=== PATIENT | female | born 1975 | race Asian ===

== ENCOUNTER 2018-05-09 00:39 | Emergency (ER) | payer OTHER ==
[2018-05-09 01:40] LABS: ABS Basophils 0.1 10^3/ul (0-0.2); ABS Eosinophils 0.2 10^3/ul (0-0.6); ABS Lymphocytes 1.8 10^3/ul (1.0-4.8); ABS Monocytes 0.8 10^3/ul (0-0.8); ABS Neutrophils 7.3 10^3/ul (1.5-7.7); ABS Nucleated RBC 0 10^3/ul; Eosinophil % 1.5 % (0-6); Hematocrit 37 % (35-47); Hemoglobin 12.5 g/dl (12.0-16.0); Lymphocyte % 17.6 % (25-47); Mean Corpuscular HGB Conc 34 g/dl (31-36); Mean Corpuscular Hemoglobin 31 pg (27-31); Mean Corpuscular Volume 91 fL (80-97); Mean Platelet Volume 8.3 um3 (7.4-10.4); Nucleated Red Blood Cells % 0; Platelet Count 318 10^3/ul (150-450); Red Blood Count 4.04 10^6/ul (4.00-5.40); Red Cell Distribution Width 13 % (10.5-15); White Blood Count 10.1 10^3/ul (3.5-10.8)
--- NOTE | 2018-05-09 02:15 | ED ---
Respiratory - HPI Summary HPI Summary: Complains of productive cough, nasal discharge 2 weeks, with right side tickling of her chest, shortness of breath starting this afternoon. Right side tickling of her chest has been constant. Cough is very persistent. Denies fever, neck stiffness, sore throat, ear pain, SHELDON, N/V/D, abdomen pain, change in urinary BM. Medical history is none. Nonsmoker, negative EtOH, negative illegal drugs. Denies history of blood clots, cancer, unilateral bilateral leg pain, hemoptysis cysts, recent trauma or surgery, estrogen or hormone supplements. Denies history of cardiac disease or pulmonary disease. States she has been taking old prescription for azithromycin 500 mg daily 4 days with no improvement in symptoms. - History of Current Complaint Chief Complaint: EDUpperRespComplaint Stated Complaint: COUGH Time Seen by Provider: 05/09/18 00:52 Hx Obtained From: Patient, Family/[employer] Supervisor Onset/Duration: Gradual Onset Initial Severity: Mild Current Severity: Mild Pain Intensity: 0 Character: Cough (Productive), Dyspnea on Exertion Sputum Amount: Moderate Sputum Color: Green Aggravating Factor(s): Exertion, Deep Breaths - Risk Factors Status Asthmaticus Risk Factors: Negative Pulmonary Embolism Risk Factors: Negative Cardiac Risk Factors: Negative Tuberculosis Risk Factors: Negative - Allergy/Home Medications Allergies/Adverse Reactions: Allergies Allergy/AdvReac Type Severity Reaction Status Date / Time Penicillins Allergy Rash Verified 05/09/18 00:46 PMH/Surg Hx/FS Hx/Imm Hx Previously Healthy: Yes Endocrine/Hematology History: Denies: Hx Anticoagulant Therapy Cardiovascular History: Denies: Hx Atrial Fibrillation Respiratory History: Denies: Hx Asthma GI History: Denies: Hx Cirrhosis History: Reports: Hx Kidney Infection - kidney stones; miriam renal cysts Musculoskeletal History: Denies: Hx Gout Sensory History: Denies: Hx Cataracts EENT History: Denies: Hx Deafness Neurological History: Denies: Hx CVA Infectious Disease History: No Infectious Disease History: Denies: Traveled Outside the [place] in Last 30 Days - Social History Alcohol Use: None Substance Use Type: Reports: None Smoking Status (MU): Never Smoked Tobacco Review of Systems Constitutional: Negative Eyes: Negative ENT: Negative Positive: Chest Pain Positive: Shortness Of Breath, Cough Gastrointestinal: Negative Genitourinary: Negative Musculoskeletal: Negative Neurological: Negative Psychological: Normal All Other Systems Reviewed And Are Negative: Yes Physical Exam Triage Information Reviewed: Yes Vital Signs On Initial Exam: Initial Vitals Temp Pulse Resp BP Pulse Ox 98.3 F 114 23 130/88 98 05/09/18 00:42 05/09/18 00:42 05/09/18 00:42 05/09/18 00:42 05/09/18 00:42 Vital Signs Reviewed: Yes Appearance: Positive: Well-Appearing Skin: Positive: Warm Head/Face: Positive: Normal Head/Face Inspection Eyes: Positive: Normal ENT: Positive: Normal ENT inspection Neck: Positive: Supple Respiratory/Lung Sounds: Positive: Clear to Auscultation Cardiovascular: Positive: Normal Abdomen Description: Positive: Nontender Musculoskeletal: Positive: Normal Neurological: Positive: Normal Psychiatric: Positive: Normal AVPU Assessment: Alert - William Coma Scale Best Eye Response: 4 - Spontaneous Best Motor Response: 6 - Obeys Commands Best Verbal Response: 5 - Oriented Coma Scale Total: 15 Diagnostics - Vital Signs Vital Signs Temp Pulse Resp BP Pulse Ox 05/09/18 01:02 122 143/105 96 05/09/18 00:42 98.3 F 114 23 130/88 98 - Laboratory Lab Results: Lab Results 05/09/18 05/09/18 05/09/18 Range/Units 01:23 01:23 01:23 WBC 10.1 (3.5-10.8) 10^3/ul RBC 4.04 (4.00-5.40) 10^6/ul Hgb 12.5 (12.0-16.0) g/dl Hct 37 (35-47) % MCV 91 (80-97) fL MCH 31 (27-31) pg MCHC 34 (31-36) g/dl RDW 13 (10.5-15) % Plt Count 318 (150-450) 10^3/ul MPV 8.3 (7.4-10.4) um3 Neut % (Auto) 71.8 (38-83) % Lymph % (Auto) 17.6 L (25-47) % [place] % (Auto) 8.2 H (0-7) % Eos % (Auto) 1.5 (0-6) % Baso % (Auto) 0.9 (0-2) % Absolute Neuts (auto) 7.3 (1.5-7.7) 10^3/ul Absolute Lymphs (auto) 1.8 (1.0-4.8) 10^3/ul Absolute Monos (auto) 0.8 (0-0.8) 10^3/ul Absolute Eos (auto) 0.2 (0-0.6) 10^3/ul Absolute Basos (auto) 0.1 (0-0.2) 10^3/ul Absolute Nucleated RBC 0 10^3/ul Nucleated RBC % 0 Sodium 138 (135-145) mmol/L Potassium 4.1 (3.5-5.0) mmol/L Chloride 106 (101-111) mmol/L Carbon Dioxide 26 (22-32) mmol/L Anion Gap 6 (2-11) mmol/L BUN 17 (6-24) mg/dL Creatinine 0.67 (0.51-0.95) mg/dL Est GFR ( Amer) 124.7 (>60) Est GFR (Non-Af Amer) 97.0 (>60) BUN/Creatinine Ratio 25.4 H (8-20) Glucose 99 (70-100) mg/dL Lactic Acid 1.2 (0.5-2.0) mmol/L Calcium 9.3 (8.6-10.3) mg/dL Total Bilirubin 0.40 (0.2-1.0) mg/dL AST 18 (13-39) U/L ALT 10 (7-52) U/L Alkaline Phosphatase 58 (34-104) U/L Troponin I 0.00 (<0.04) ng/mL C-Reactive Protein 2.07 (< 5.00) mg/L Total Protein 7.1 (6.4-8.9) g/dL Albumin 4.0 (3.2-5.2) g/dL Globulin 3.1 (2-4) g/dL Albumin/Globulin Ratio 1.3 (1-3) Result Diagrams: 05/09/18 01:23 05/09/18 01:23 Lab Statement: Any lab studies that have been ordered have been reviewed, and results considered in the medical decision making process. - Radiology cxr Xray Interpretation: No Acute Changes Radiology Interpretation Completed By: ED Physician - EKG 1 Cardiac Rate: NL EKG Rhythm: Sinus Rhythm ST Segment: Non-Specific Ectopy: None Disposition - Course Course Of Treatment: Complains of productive cough, nasal discharge 2 weeks, with right side tickling of her chest, shortness of breath starting this afternoon. Right side tickling of her chest has been constant. Cough is very persistent. Denies fever, sore throat, ear pain, SHELDON, N/V/D, abdomen pain, change in urinary BM. Medical history is none. Nonsmoker, negative EtOH, negative illegal drugs. Denies history of blood clots, cancer, unilateral bilateral leg pain, hemoptysis cysts, recent trauma or surgery, estrogen or hormone supplements. Denies history of cardiac disease or pulmonary disease. States she has been taking old prescription for azithromycin 500 mg daily 4 days with no improvement in symptoms. PE: nml. W/up: Labs and imaging unremarkable. Patient has been on an old prescription for azithromycin 4 days with no improvement. Likely viral syndrome. Rx for Robitussin with codeine. Robitussin with codeine once here in the ED. driving patient home. - Diagnoses Provider Diagnoses: Cough, Viral syndrome Discharge - Sign-Out/Discharge Documenting (check all that apply): Discharge/Admit/Transfer - Discharge Plan Condition: Stable Disposition: HOME Prescriptions: guaiFENesin/CODIEN 100MG-10MG* [Robitussin AC 100Mg-10Mg*] 5 ml PO Q4H PRN 5 Days #150 udc MDD 30ml PRN Reason: Pain Patient Education Materials: Viral Syndrome (ED) Referrals: Jojo Fofana MD [Primary Care Provider] - Additional Instructions: Follow-up with primary care. Return to the ED for any new or worsening symptoms - Billing Disposition and Condition Condition: STABLE Disposition: Home
[2018-05-09] MEDS ORDERED: guaiFENesin/CODIEN 100MG-10MG* 5 ML UDC PO ONE (02:44)
[2018-05-09 03:26] VITALS: BP 132/78
--- NOTE | 2018-05-09 07:34 | RAD ---
HISTORY: cough, sob COMPARISONS: January 14, 2007 VIEWS: 4: Frontal dual-energy and lateral views of the chest. FINDINGS: CARDIOMEDIASTINAL SILHOUETTE: The cardiomediastinal silhouette is normal. IVAN: The ivan are normal. PLEURA: The costophrenic angles are sharp. No pleural abnormalities are noted. LUNG PARENCHYMA: The lungs are clear. ABDOMEN: The upper abdomen is clear. There is no subphrenic gas. BONES AND SOFT TISSUES: No bone or soft tissue abnormalities are noted. OTHER: None. IMPRESSION: NO ACTIVE CARDIOPULMONARY DISEASE.
== END 2018-05-09 03:25 | disposition home or self-care (01) ==
LOC: ED 00:39
DX: B34.9 Viral infection, unspecified (principal); R05 Cough; R06.02 Shortness of breath; R07.9 Chest pain, unspecified
CPT/HCPCS: 36415; 71046; 80053; 83605; 84484; 85025; 86140; 93005; 99283; A9270-GY

== ENCOUNTER 2019-06-04 11:18 | Emergency (ER) | payer OTHER ==
[2019-06-04 12:57] VITALS: BP 110/66
--- NOTE | 2019-06-04 13:15 | UC ---
Ear Complaint HPI - HPI Summary HPI Summary: 43-year-old female who states that she's had some left ear pain over the past couple of days. She denies any recent cold symptoms. She has not been swimming. She is concerned because a friend of hers had some pain to the left side of her face and it was cancer and so she is worried that something like that is occurring. She speaks very good Thai. She states the area hurt when she was eating an apple on the left side. - History of Current Complaint Chief Complaint: UCGeneralIllness Stated Complaint: EAR PAIN Time Seen by Provider: 06/04/19 13:05 Hx Obtained From: Patient ?: No Onset/Duration: Gradual Onset, Other - Just over the past 2 days she has had some tingling in front of her left ear and mild earache. Severity Initially: Mild Severity Currently: Mild Pain Intensity: 2 Aggravating Factors: Nothing Alleviating Factors: Nothing Associated Signs/Symptoms: Negative: Discharge, Hearing Loss, Foreign Body Sensation, Trauma to Ear, Swelling @, URI Symptoms - Allergies/Home Medications Allergies/Adverse Reactions: Allergies Allergy/AdvReac Type Severity Reaction Status Date / Time Penicillins Allergy Rash Verified 06/04/19 12:57 Home Medications: Home Medications NK [No Home Medications Reported] 06/04/19 [History Confirmed 06/04/19] PMH/Surg Hx/FS Hx/Imm Hx Previously Healthy: Yes Other History Of: Negative For: Anticoagulant Therapy - Surgical History Surgery Procedure, Year, and Place: csection - Family History Known Family History: Positive: Non-Contributory - Social History Lives: With Family Alcohol Use: None Substance Use Type: None Smoking Status (MU): Never Smoked Tobacco - Immunization History Most Recent Tetanus Shot: unsure Review of Systems All Other Systems Reviewed And Are Negative: Yes ENT: Positive: Dental Pain - Patient denies dental pain however states that when she ate an apple on the left side her ear hurt., Ear Ache - Left earache. Is Patient Immunocompromised?: No Physical Exam Triage Information Reviewed: Yes Appearance: Well-Appearing, No Pain Distress, Well-Nourished Vital Signs: Initial Vital Signs Temp 98.3 F 06/04/19 12:52 Pulse 100 06/04/19 12:52 Resp 20 06/04/19 12:52 BP 110/66 06/04/19 12:52 Pulse Ox 100 06/04/19 12:52 Vital Signs Reviewed: Yes Eyes: Positive: Conjunctiva Clear ENT: Positive: Hearing grossly normal, Pharynx normal, TMs normal - Ear canals are normal. Tragus is nontender ear is nontender on manipulation., Uvula midline Dental: Positive: Other: - No tenderness on palpation of the upper or lower teeth on the left side. She does have a partially impacted left distal molar but is nontender and the gumline is normal. Neck: Positive: Supple, Nontender, No Lymphadenopathy Respiratory: Positive: Lungs clear, Normal breath sounds, No respiratory distress, No accessory muscle use Cardiovascular: Positive: RRR, No Murmur, Pulses Normal, Brisk Capillary Refill Musculoskeletal Exam: Normal Neurological Exam: Normal Psychological Exam: Normal Skin Exam: Normal Ear Complaint Course/Dx - Course Course Of Treatment: The patient is comfortable here and does not presently have ear pain. She basically needed reassurance that the exam was normal. She is to follow-up with her primary care provider if no improvement in 3 or 4 days or if worsening symptoms. - Differential Dx/Diagnosis Provider Diagnosis: Otalgia of left ear Discharge - Sign-Out/Discharge Documenting (check all that apply): Patient Departure All imaging exams completed and their final reports reviewed: No Studies - Discharge Plan Condition: Good Disposition: HOME Patient Education Materials: Earache (ED) Referrals: Jojo Fofana MD [Primary Care Provider] - Additional Instructions: You can apply heat or ice to the area which ever feels good. Tylenol or Motrin for pain. Definite follow-up with a dentist if you have continued pain when you are eating. - Billing Disposition and Condition Condition: GOOD Disposition: Home
== END 2019-06-04 13:17 | disposition home or self-care (01) ==
LOC: UCEAST 11:18
DX: H92.02 Otalgia, left ear (principal); Z88.0 Allergy status to penicillin
CPT/HCPCS: 99211; G0463